=== PATIENT | female | born 1980 | race Two or more races ===

== ENCOUNTER 2018-07-11 01:21 | Emergency (ER) | payer MEDICAID ==
[~2018-07-11] VITALS: Ht 160 cm; Wt 74.8 kg
--- NOTE | 2018-07-11 01:43 | Emergency Room Report ---
History of Present Illness General Chief Complaint: Skin Rash/Abscess Source: Patient Present Illness HPI Is a 38-year-old female with no past medical history. She presents with chief complaint of lesion on her skin. She said there are black gray from possible bites or whatever on her skin. She's been picking at it and now is getting infected. No drainage. This is a chronic problem but the drainage started about a week or 2. No fever chills but no nausea no vomiting. Denies any other complaint. Denies any drug use. Allergies: Coded Allergies: No Known Allergies (Unverified , 07/11/18) Patient History Past Medical History: see triage record, old chart reviewed Past Surgical History: none Pertinent Family History: none Social History: Denies: smoking Last Menstrual Period: last month Now: No Immunizations: other Reviewed Nursing Documentation: PMH: Agreed; PSxH: Agreed Nursing Documentation-PM Past Medical History: No Stated History Review of Systems Eye: Denies: eye pain, blurred vision ENT: Denies: ear pain, nose congestion, throat swelling Respiratory: Denies: cough, shortness of breath Cardiovascular: Denies: chest pain, palpitations Gastrointestinal: Denies: abdominal pain, diarrhea, nausea, vomiting Musculoskeletal: Denies: back pain, joint pain Skin: Reports: rash, lesions Neurological: Denies: headache, numbness Endocrine: Denies: increased thirst, increased urine Hematologic/Lymphatic: Denies: easy bruising All Other Systems: negative except mentioned in HPI Physical Exam Vital Signs Date Time Temp Pulse Resp B/P (MAP) Pulse Ox O2 Delivery O2 Flow Rate FiO2 07/11/18 01:27 99.2 108 18 132/81 98 Room Air 99.1 vitals normal except for tachycardia Sp02 EP Interpretation: reviewed, normal General Appearance: well appearing, no apparent distress, alert Head: normocephalic, atraumatic Eyes: bilateral eye PERRL, bilateral eye EOMI ENT: hearing grossly normal, normal pharynx Neck: full range of motion, supple, no meningismus Respiratory: chest non-tender, lungs clear, normal breath sounds Cardiovascular #1: regular rate, rhythm, no murmur Gastrointestinal: normal bowel sounds, non tender, no mass, no organomegaly, no bruit, non-distended Musculoskeletal: back normal, gait/station normal, normal range of motion Psychiatric: mood/affect normal Skin: warm/dry, other - Patient with scarring from skin picking mostly on her upper extremity. On her right villa there are to area of ulceration with mild drainage. There is surrounding redness. Tender to palpation. No drainage. Medical Decision Making Diagnostic Impression: Primary Impression: Cellulitis Qualified Codes: L03.90 - Cellulitis, unspecified Additional Impressions: Methamphetamine abuse Delusions of parasitosis ER Course patient presents with cellulitis of the skin from skin picking. 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 No abscess to be I and D. We'll discharge home. Last Vital Signs Date Time Temp Pulse Resp B/P (MAP) Pulse Ox O2 Delivery O2 Flow Rate FiO2 07/11/18 01:27 99.2 108 18 132/81 98 Room Air 99.1 Status: improved Disposition: HOME, SELF-CARE Condition: Stable Scripts Trimethoprim/Sulfamethoxazole 160/800* (BACTRIM DS TABLET*) 1 Each Tablet 1 TAB ORAL Q12H, #14 TAB 0 Refills Prov: ALONSO RAY M.D. 07/11/18 Mupirocin* (MUPIROCIN*) 22 Gm Oint...g. 1 APPLIC TOPIC THREE TIMES A DAY, #22 GM Prov: ALONSO RAY M.D. 07/11/18 Additional Instructions: Stop using drugs. This cause you to have sensation of bugs underneath your skin. This in turn causing to pick at it and cause infection. Follow-up with your doctor in 7 days. Follow-up in rehabilitation. Return if symptom worsen. ALONSO RAY M.D. Jul 11, 2018 01:43
[2018-07-11] MEDS ORDERED: Bactrim-DS 1 tab ORAL ONE (01:45)
[2018-07-11 02:05] VITALS: BP 130/80
[2018-07-11 02:34] VITALS: BP 128/79
[2018-07-11 02:35] VITALS: BP 128/79
[2018-07-11] MEDS ORDERED: MUPIROCIN22 GM TOPIC (02:36)
[2018-07-11] MEDS ORDERED: BACTRIM DS TAB1 EAC1 ORAL (02:36)
== END 2018-07-11 02:35 | disposition home or self-care (01) ==
LOC: EMR 01:47
DX: L03.119 Cellulitis of unspecified part of limb (principal); F15.10 Other stimulant abuse, uncomplicated; F22 Delusional disorders
CPT/HCPCS: 80307; 81025; 99283